=== PATIENT | female | born 1960 | race African-American/Black ===

== ENCOUNTER 2020-03-11 07:45 | Outpatient (CLI) | payer BC ==
--- NOTE | 2020-03-11 09:09 | MRI ---
MRI LUMBAR SPINE NONCONTRAST: DATE: 03/11/2020 HISTORY: 59-year-old female with ICD-10: "M 51.16 intervertebral degenerative disc disease with radiculopathy" COMPARISON: None FINDINGS: 5 lumbar-type vertebrae. Vertebral body heights are maintained. No bone marrow edema. No major pathol ogy of perivertebral spaces. Multiple tiny gallstones. Conus medullaris terminates at L1-2. T12-L1:Normal L1-2:Normal L2-3:Minimal disc bulge. Otherwise essentially normal. L3-4:Moderate bilateral facet DJD causes mild grade 1 anterolisthesis of L3 on L4. Moderate diffuse d isc bulge. Facet hypertrophy plus moderate ligamentum flavum thickening. All of these factors result in a trefoil configuration distortion of spinal canal and thecal sac, with moderate to severe central spinal canal stenosis. Mild bilateral neural foraminal stenosis. No high-grade disc space narrowing. L4-5:Severe disc space narrowing. Modic type II endplate marrow changes. Prominent diffuse disc bulge . Moderate ligamentum flavum thickening and mild to moderate bilateral facet DJD. Moderate to severe right neural foraminal stenosis. Moderate left neural foraminal stenosis. Superimposed on the disc bulge, there is a small central, left paracentral, and left lateral focal disc herniation which effaces the left ventral aspect of thecal sac, at least mildly impinging on the left L5 nerve r oot. Moderate to severe central spinal canal stenosis. L5-S1:Disc space maintained. Moderate facet DJD bilaterally. No central spinal canal stenosis. No hig h-grade neural foraminal stenosis. Mild left lateral recess stenosis. IMPRESSION: 1) lumbar spondylosis. 2) high-grade degenerative disc disease at L4-5, where there is high-grade neural foraminal stenosis bilaterally, especially right, central spinal canal stenosis, and disc bulge plus disc herniation that mildly impinges on left L5 nerve root. 3) high-grade central spinal canal stenosis at L3-4 due to combination of mild grade 1 spondylolisthe sis, disc bulge, and high-grade facet osteoarthrosis. 4) cholelithiasis
== END 2020-03-11 07:46 | disposition home or self-care (01) ==
LOC: TBSIIMAG 07:45
PROVIDERS: ATTEND Specialist
DX: M51.16 Intervertebral disc disorders with radiculopathy, lumbar region (principal); M48.061 Spinal stenosis, lumbar region without neurogenic claudication; M47.26 Other spondylosis with radiculopathy, lumbar region; M43.16 Spondylolisthesis, lumbar region
CPT/HCPCS: 72148

== ENCOUNTER 2020-04-27 06:39 | Outpatient (CLI) | payer BC, OTHER ==
[2020-04-27 14:08] LABS: Hemoglobin 13.4 g/dL (12.0-16.0); Mean Corpuscular HGB CONC 31.9 g/dL (32.0-36.0); Mean Corpuscular Hemoglobin 30.5 pg (27.0-31.0); Mean Corpuscular Volume 95.4 fL (78.0-98.0); Mean Platelet Volume 7.7 fL (7.4-10.4); Platelet Count 409 thou/uL (130-400); RBC Distribution Width 11.2 % (11.5-14.5); White Blood Cell (WBC) Count 6.7 thou/uL (4.8-10.8)
[2020-04-27 14:25] LABS: Prothrombin Time 12.9 sec (12.0-14.7)
[2020-04-27 14:26] LABS: PTT 31.2 sec (22.9-36.1)
[2020-04-27 14:29] LABS: Anion Gap 16 mmol/L (10-20); BUN (Urea Nitrogen) 17 mg/dL (9.8-20.1); Calc. Creatinine Clearance 0 mL/min (70-130); Calcium 9.4 mg/dL (7.8-10.44); Carbon Dioxide 25 mmol/L (22-29); Chloride 106 mmol/L (98-107); Estimated GFR-MDRD 89; Glucose 93 mg/dL (70-105); Potassium 4.7 mmol/L (3.5-5.1); Sodium 142 mmol/L (136-145)
[2020-04-28 12:20] LABS: SARS-CoV-2 MS2 Positive; SARS-CoV-2 N Gene Negative; SARS-CoV-2 S Gene Negative; SARS-CoV-2 orf1ab Negative
== END 2020-04-27 06:40 | disposition home or self-care (01) ==
LOC: LABBT 06:39
PROVIDERS: ATTEND Neurological Surgery
DX: Z01.818 Encounter for other preprocedural examination (principal); Z11.59 Encounter for screening for other viral diseases; M50.00 Cervical disc disorder with myelopathy, unspecified cervical region
CPT/HCPCS: 80048; 85027; 85610; 85730; 87635; 93005; 93010; U0003

== ENCOUNTER 2020-04-30 10:23 | Day surgery (SDC) | payer BC ==
[2020-04-24 11:34] VITALS: BMI 37.8
--- NOTE | 2020-04-29 13:20 | HP ---
REASON FOR HISTORY AND PHYSICAL: C3-4, C4-5 ACDF on 04/30/2020, case #[id number]. CHIEF COMPLAINT: Neck pain and hand numbness with occasional clumsiness. HISTORY OF PRESENT ILLNESS: Ms. Plaza is a 60-year-old female with more than 20 years of neck pain. She states she has been having some pain radiating into her right middle finger and has been having trouble occasionally buttoning her shirts. She has noticed that she has had a little more unsteady gait, having to pull her hands out, so she does not bump into sanchez. She denies any bladder or bowel dysfunction. CURRENT MEDICATIONS: 1. Loratadine 2. Fluticasone 3. Tylenol with Codeine No.3. 4. [place] Thyroid. 5. Potassium chloride. 6. Hydrochlorothiazide. 7. Spironolactone. 8. Sertraline. 9. Naproxen. 10. Lyrica 11. MiraLAX 12. Dovonex 13. Eye Caps 14 Ranitidine 15. Omeprazole 16. Lorazepam PAST MEDICAL HISTORY: Arthritis, asthma, bronchitis, chickenpox, mumps, and thyroid problems. SURGICAL HISTORY: Hysterectomy, nose surgery, and lap sleeve gastrectomy. FAMILY HISTORY: Father alive. Mother alive, Diabetes. 1 Son alive. 2 Daughter alive Two brothers alive. SOCIAL HISTORY: Nonsmoker. Occasional alcohol use. Denies illicit drugs. ALLERGIES: SULFA AND FLAGYL. REVIEW OF SYSTEMS: CONSTITUTIONAL: Denies fever or chills. ENT: Denies change in vision or hearing. CARDIAC: Denies chest pain, shortness of breath, or diaphoresis. PULMONARY: Denies shortness of breath, cough, or hemoptysis. GI: Denies abdominal pain, nausea, vomiting, diarrhea, or change in stool formation and consistency. : Denies trouble with urination, frequency of urination, or bloody urine. SKIN: Denies skin rash, bruising, bleeding, or skin masses. MUSCULOSKELETAL: As per history of present illness. NEUROLOGICAL: As per history of present illness. PSYCHOLOGICAL: Denies anxiety, depression, or behavior changes. PHYSICAL EXAMINATION: VITAL SIGNS: Weight 183, height 5 feet 3 inches. HEENT: Pupils are equal. Extraocular movements are intact. NECK: Soft, supple. No masses are noted. Range of motion is intact and slightly painful. NEUROLOGIC: Awake, alert, and oriented x3. Memory, attention, and fund of knowledge are normal. Cranial nerves are grossly intact. Upper extremities: She has good strength bilaterally in her deltoids, biceps, triceps, wrist extension, finger extension, and finger intrinsics. Sensation equal bilaterally. Nondermatomal loss in hands. Gait and station: Sit to stand, normal but slow. Tandem walking: Slow and deliberate. IMAGING DATA: MRI of C-spine: C3-4 with cord compression. Herniated disk at C4-5 with cord compression. C5-6 and C6-7 foraminal stenosis with moderate canal stenosis. ASSESSMENT: 1. 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 2. Cervical stenosis with myopathy. PLAN: 1. ACDF at C3-4, C4-5. 2. Preop labs: CBC, PT, PTT, and COVID-19. 3. Anesthesia clearance. 4. Informed consent: We discussed the indications, risks, benefits, alternatives, and expected results from surgery. The risks discussed included, but were not limited to, bleeding, infection, CSF leak, nerve damage, weakness, swallowing trouble, feeding tube placement, tracheal injury, esophageal injury, vocal cord injury, spinal cord injury, incontinence, paralysis, ventilator dependency, wheelchair dependency, stroke, loss of vision, carotid artery injury, jugular vein injury, hardware misplacement, cardiopulmonary complications of anesthesia, or . Long-term complications discussed included, but were not limited to hardware failure and degeneration of surrounding disk. She understands the risks and is willing to proceed. Job ID: [id number] [facility]
[~2020-04-30 10:23] MED LIST: EPHEDRINE 25 MG/5 ML SYRINGE ONE; Lidocaine 1% PF 5 ML VIAL ONE; Metoprolol Tartrate 5 MG/5 ML VIAL ONE; Ondansetron PF 4 MG/2 ML Vial ONE; PHENYLEPHRINE-NS 100 MCG/ML 10 ML SYRINGE ONE; PROPOFOL 200 MG/20 ML VIAL ONE; Rocuronium Bromide 10 MG/ML (10ML VIAL) ONE
[2020-04-30] MEDS ORDERED: Fentanyl 100 MCG/2 ML VIAL ONE ×5 (11:23→16:37)
[2020-04-30] MEDS ORDERED: Thrombin 5000 UNITS/5 ML VIAL ONE (11:29)
[2020-04-30] MEDS ORDERED: Midazolam HCl 2 mg/2 ml Vial ONE (11:48)
[2020-04-30] MEDS ORDERED: SUGAMMADEX SODIUM 200 MG/2 ML VIAL ONE (13:07)
[2020-04-30] MEDS ORDERED: Morphine 4 MG/ML VIAL ONE (17:08)
[2020-04-30] MEDS ORDERED: Ketorolac Tromethamine 30 MG/ML VIAL ONE (17:19)
[2020-04-30] MEDS ORDERED: Famotidine/PF 20 mg/2ml Vial ONE (17:19)
[2020-04-30] MEDS ORDERED: tiZANidine HCl 4 MG TAB ONE (18:24)
[2020-04-30] MEDS ORDERED: HYDROcodone/Acetaminophen 5/325 mg Tablet ONE (18:51)
--- NOTE | 2020-04-30 19:54 | OP ---
DATE OF PROCEDURE: 04/30/2020 GHOST WRITER: Kirk Hudson PA-C PREOPERATIVE INDICATION: Prevent further neurological deterioration. PREOPERATIVE DIAGNOSES: Cervical intervertebral disk disease with cord compression and myelopathy at C3-C4 and C4-C5. POSTOPERATIVE DIAGNOSES: Cervical intervertebral disk disease with cord compression and myelopathy at C3-C4 and C4-C5. OPERATIVE PROCEDURES: Anterior cervical diskectomy, intervertebral arthrodesis, placement of intervertebral biomechanical device and anterior cervical plating, C3-C4 and C4-C5, local morselized autograft and morselized allograft, and operating microscope. PREOPERATIVE MEDICATION: Ancef 2 g IV. DRAIN NUMBER: Zero. DRAIN TYPE: None. DESCRIPTION OF PROCEDURE: The patient was brought to the operating room. General endotracheal anesthesia was induced. The patient was positioned supine on the operating table with her head supported by a donut-shaped headrest. A lateral fluoro radiograph was used to plan our incision. The neck was kept in normal anatomic alignment. The right side of the neck was sterilely prepped and draped. We opened with a 10 blade knife and we controlled bleeding with bipolar cautery. We dissected sharply to the platysma and we cut this muscle in-line with our incision. We dissected medial to the sternocleidomastoid and lateral to the trachea and esophagus until we arrived to the prevertebral space. A marker was placed on the spine and a lateral fluoro radiograph confirmed the levels upon which we were operating. We then elevated the longus colli muscles off the anterior surface of C3, C4, and C5. A self-retaining retractor was placed beneath those muscles. Distraction pins were placed at C3 and C5 and we distracted across the two intervening interspaces. We incised the interspaces with a 15 blade knife and we removed disk contents using curettes and rongeurs. As we approached the posterior longitudinal ligament, the operative microscope was brought in the field. Under microscopic magnification using microsurgical techniques, we removed the remainder of the intervertebral disk. We accessed the ventral epidural space by placing a micro curette behind the posterior longitudinal ligament. We removed posterior osteophytes, disk, and posterior longitudinal ligament across the entire interspace to decompress the dura from nerve root to nerve root at C3-C4 and C4-C5. At C4-C5 in the center of the canal, the disk material and posterior longitudinal ligament was firmly attached to the dura, although we decompressed bilaterally around this area. We had to leave some remnant of the ligament and disk there in order to preserve the integrity of the dura. There was no CSF leak. Nonetheless, we had good decompression of the entire dura across the spinal canal and both neural foramen. We could see pulsations in the cord through the dura insuring that it was well decompressed. We then turned our attention to arthrodesis. We prepared the endplates for grafting using curettes. We measured the height of each interspace to 7 mm. Two separate 7 mm PEEK intervertebral grafts were brought into the field. Demineralized bone matrix and morselized autograft was packed into the center of the PEEK grafts and those were advanced into the respective interspaces under radiographic guidance to the appropriate depth. Our autograft was obtained from our osteophytectomy taken during decompression. These osteophytes were cleaned of soft tissue attachments morcellized and added into demineralized bone matrix to form our fusion substrate. We turned our attention to plating. The operative microscope was taken out of the field. A 31 mm anterior cervical plate was brought into the field. We drilled river pilot holes through the plate into the vertebral bodies at C3, C4, and C5 and we affixed the plate with 14 mm screws. Fixed angle screws were used at C5 and variable angle screws at C4 and C3. We engaged the locking mechanism over each of the six screws. AP and lateral fluoro radiographs confirmed adequate positioning of our instrumentation. We irrigated with bacitracin irrigation. We closed the wound in anatomical layers. We applied a sterile dressing. This was a clean case, no contamination. Job ID: [id number]
== END 2020-04-30 19:31 | disposition home or self-care (01) ==
LOC: SDC 10:23
PROVIDERS: ATTEND Neurological Surgery
PROC: 0RG20A0 Fusion of 2 or more Cervical Vertebral Joints with Interbody Fusion Device, Anterior Approach, Anterior Column, Open Approach (ICD-10-PCS; principal; 2020-04-30)
PROC: 0RT30ZZ Resection of Cervical Vertebral Disc, Open Approach (ICD-10-PCS; principal; 2020-04-30)
DX: M50.01 Cervical disc disorder with myelopathy, high cervical region (principal); M50.122 Cervical disc disorder at C5-C6 level with radiculopathy; M48.02 Spinal stenosis, cervical region; M51.16 Intervertebral disc disorders with radiculopathy, lumbar region; M48.062 Spinal stenosis, lumbar region with neurogenic claudication; I10 Essential (primary) hypertension; E03.9 Hypothyroidism, unspecified; K21.9 Gastro-esophageal reflux disease without esophagitis; F41.9 Anxiety disorder, unspecified; F32.9 Major depressive disorder, single episode, unspecified; J45.909 Unspecified asthma, uncomplicated; L40.9 Psoriasis, unspecified; Z79.899 Other long term (current) drug therapy; Z88.1 Allergy status to other antibiotic agents; Z88.2 Allergy status to sulfonamides; Z98.84 Bariatric surgery status
CPT/HCPCS: 76000; C1713; C1776; J0690; J1885; J2250; J2270; J3010; J3490; S0028

== ENCOUNTER 2020-06-22 14:31 | Outpatient (CLI) | payer BC ==
--- NOTE | 2020-06-22 15:30 | RAD ---
CERVICAL SPINE 4 VIEWS: Date: 06/22/2020 INDICATION: History of surgery. COMPARISON: Prior exam dated 09/01/2015. FINDINGS: There is an ACDF plate now seen traversing C3 through C5 with intervertebral cages at C3-4 and C4-5. Advanced disc degenerative disease at C5-6 and C6-7 are stable. Spinal alignment is within normal baird its. Prevertebral soft tissues are normal appearing. Lateral masses are symmetric. IMPRESSION: Postoperative cervical spine. POS: JUANA
== END 2020-06-22 14:32 | disposition home or self-care (01) ==
LOC: TBSIIMAG 14:31
PROVIDERS: ATTEND Neurological Surgery
DX: M50.022 Cervical disc disorder at C5-C6 level with myelopathy (principal); Z98.1 Arthrodesis status
CPT/HCPCS: 72040